=== PATIENT | male | born 1960 | race Caucasian/White ===

== ENCOUNTER 2020-02-24 21:18 | Inpatient (IN) | payer SELFPAY ==
[2020-02-24] MEDS ORDERED: Morphine 4 MG/ML VIAL ONE (21:47)
[2020-02-24 22:02] LABS: #Lymphocytes 0.6 thou/uL (1.20-3.40); #Monocytes 0.8 thou/uL (0.11-0.59); #Neutrophils 12.2 thou/uL (1.40-6.50); %Eosinophils 0.2 % (0.0-10.0); %Lymphocytes 4.1 % (21.0-51.0); %Monocytes 5.6 % (0.0-10.0); %Neutrophils 90.1 % (42.0-75.0); Hemoglobin 12.3 g/dL (14.0-18.0); Mean Corpuscular HGB CONC 34.9 g/dL (32.0-36.0); Mean Corpuscular Hemoglobin 34.3 pg (27.0-31.0); Mean Corpuscular Volume 98.5 fL (78.0-98.0); Mean Platelet Volume 6.2 fL (7.4-10.4); Platelet Count 176 thou/uL (130-400); RBC Distribution Width 12.3 % (11.5-14.5); Red Blood Cell (RBC) Count 3.57 mill/uL (4.70-6.10); White Blood Cell (WBC) Count 13.5 thou/uL (4.8-10.8)
[2020-02-24] MEDS ORDERED: methylPREDNISolone Sod Succ/PF 125 MG/2 ML VIAL ONE (22:10)
[2020-02-24] MEDS ORDERED: Ketorolac Tromethamine 30 MG/ML VIAL ONE (22:12)
[2020-02-24 22:17] LABS: Acetaminophen Less than 6.0 mcg/mL (10.0-30.0); Alcohol Less than 10 mg/dL (Less than 10); Salicylate Less than 8.0 mg/dL (15.0-30.0)
[2020-02-24] MEDS ORDERED: hydrALAZINE 20 MG/ML VIAL SLOW IVP PRN (22:25)
[2020-02-24] MEDS ORDERED: Dextrose 50% Abboject 50 ML SYRINGE SLOW IVP PRN (22:25)
[2020-02-24] MEDS ORDERED: Morphine 4 MG/ML VIAL SLOW IVP PRN ×2 (22:25→22:39)
[2020-02-24] MEDS ORDERED: Ondansetron PF 4 MG/2 ML Vial IVP PRN (22:25)
[2020-02-24] MEDS ORDERED: Dextrose 5% in Water 1,000 ML IV PRN (22:25)
[2020-02-24] MEDS ORDERED: Cyclobenzaprine 10 MG TAB PO PRN (22:37)
[2020-02-24 22:41] LABS: CKMB 29.5 ng/mL (0-6.6)
[2020-02-24] MEDS ORDERED: Sodium Chloride 0.9% 1,000 ML IV SCH (23:00)
--- NOTE | 2020-02-24 23:23 | RAD ---
EXAM: CHEST ONE VIEW HISTORY: Chest tube placement COMPARISON: 02/24/2020 at 2009 hours. FINDINGS: Left-sided thoracostomy tube remains in place with tip again overlying the left lung apex. Subcutaneo us emphysema is again seen at the lateral left chest. Multiple left-sided rib fractures are again seen. No pleural fluid or obvious pneumothorax is appreciated. There is patchy parenchymal density 16 and a left perihilar location which could be related to contusion. Right lung is clear. Cardiac silhouettes within normal limits. No other interval change. IMPRESSION: 1. Left-sided thoracostomy tube remaining in place without obvious pneumothorax, and no pleural effus ion is seen. 2. Multiple left-sided rib fractures some of which are mildly displaced. 3. Mild interstitial and patchy opacities in the left perihilar region which could be related to cont usion or aspiration.
--- NOTE | 2020-02-25 00:47 | HP ---
TRAUMA SURGEON: Dr. Clemente. CONSULTING PHYSICIAN: None. HISTORY OF PRESENT ILLNESS: The patient is a 59-year-old male presented to our Emergency Department as a transfer and a level 2 trauma activation. The patient reported he was up in a tree standing on a ladder about 10 feet up, a branch subsequently hit the ladder and he fell onto his left side. He reports positive loss of consciousness and aspirin use. Denies any other anticoagulation. Afterwards, he reported bystanders carried him to a table. He was eventually able to get up and get a ride to the outside hospital. He was evaluated and found to have left-sided rib fractures, transverse process fractures, left lower lobe pulmonary contusion and a left-sided tension pneumothorax. A chest tube was placed and the patient was transferred to us. Upon my evaluation, the patient complained of left-sided chest wall pain. He denied any shortness of breath. He was saturating 97% on 3 L nasal cannula. He is a smoker. He does not take any medications for COPD. He denies numbness and tingling in his bilateral upper extremities. He denies C, T and L spine tenderness. He is alert and oriented x4. REVIEW OF SYSTEMS: All additional 10-point review of systems negative except as indicated above. PAST MEDICAL HISTORY: Hypertension and rotator cuff issues. PAST SURGICAL HISTORY: None. SOCIAL HISTORY: The patient reports drinking 6-7 beers every day. He smokes 2 packs tobacco cigarettes every day. Denies any drug use. He lives with roommates that are not his family, but he does have family nearby. MEDICATIONS: The patient takes lisinopril and another antihypertensive medication that he could not remember the name. ALLERGIES: NO KNOWN DRUG ALLERGIES. PHYSICAL EXAMINATION: VITAL SIGNS: Temperature 98, pulse 74, respirations 23, oxygen saturation 97% on 3 L nasal cannula, blood pressure 137/83. PRIMARY SURVEY: Airway intact. Positive bilateral breath sounds. 2+ pulses in the bilateral radials, femorals, and DPs. GCS 15. Gross motor and sensation intact. No lacerations, bruising, or external bleeding. SECONDARY SURVEY: HEAD: Normocephalic and atraumatic. No gross palpable skull deformities. EYES: Pupils 3-2, equal, round, reactive to light bilaterally. ENT: No hemotympanum. No epistaxis. No septal hematoma. Midface stable to manipulation. No blood in the oropharynx. Dentition is intact. NECK: No anterior neck injury/tenderness/crepitus. C-SPINE: No step-offs or deformities. Nontender. C-collar in place. CHEST: Left-sided anterior and lateral chest wall tenderness with a chest tube in place that is working appropriately. There is no output in the chamber. He has no abrasions or ecchymosis noted. ABDOMEN: Soft, nontender, nondistended. PELVIS: Stable to palpation. RECTAL: Deferred. GENITOURINARY: Deferred. EXTREMITIES: No gross deformities. No abrasions or ecchymosis. 2+ pulses in bilateral radials, femorals, and DPs. BACK/SPINE: No step-offs or deformities or tenderness to palpation of the thoracic or lumbar spine. No abrasions or ecchymosis noted. NEUROLOGIC: 5/5 strength. LABORATORY FINDINGS: White count 13.5, hemoglobin 12.3, hematocrit 35.2, platelets 176. Troponin 0.045, then 0.104. Sodium 133, potassium 3.8, chloride 98, bicarb 23, BUN 11, creatinine 0.74, glucose 96, lactic acid 2.1. Plasma alcohol is less than 10. DIAGNOSTIC FINDINGS: CT scan of the brain demonstrates no acute intracranial findings. CT scan of the C-spine demonstrates significant cervical degenerative changes, but no acute fracture seen. Left apical pneumothorax with some surrounding soft tissue air, see CT thorax to follow. CT scan of the chest, abdomen, and pelvis demonstrates fractures of ribs 3 through 11 fractures of left transverse process L1 through L4, moderate left pneumothorax with very minor deviation of the trachea to the right, atelectasis, contusion of the left lower lobe. All abdominal organs appear intact including the spleen, pelvis, and hip intact. No evidence of abdominal or pelvic hematoma or free air. Degenerative changes to the lumbar spine with some disk bulges and central canal stenosis particularly L4-L5 and L5-S1. Chest x-ray demonstrates left-sided thoracostomy tube remains in place without obvious pneumothorax and no pleural effusion is seen. Multiple left-sided rib fractures, some of which are mildly displaced, mild interstitial and patchy opacities in the left perihilar region which could be related to contusion or aspiration. ASSESSMENT: 1. Status post fall from 10 feet. 2. Left-sided ribs 3 through 11 fractures. 3. Left transverse process fractures of L1 through L4. 4. Left-sided tension pneumothorax, status post chest tube placement. 5. Left lower lobe pulmonary contusion. 6. Non-ST segment elevation myocardial infarction, concerning for possible cardiac contusion. 7. Hyponatremia, unsure of acuity. 8. Chronic alcohol and tobacco abuse. PLAN: The patient will be admitted to the IMCU. Continue left-sided chest tube to suction. Continue nasal cannula oxygen with goal SpO2 of 88% or better. RT to start doing nebulizer treatments once on the floor per hospital protocol. Repeat chest x-ray in the morning. The patient's troponins have continued to increase. EKG completed in the emergency department this evening demonstrated normal sinus rhythm with T-wave inversion in V1. There are no other ST-segment changes. The patient is describing chest wall tenderness and not so much cardiac related chest pain. We will continue to trend troponins. Continue cardiac monitoring. Echo to be completed in the morning. The patient will also be placed on Serax for alcohol withdrawal prevention. This patient was discussed with Dr. Clemente before this dictation. Job ID: [id number]
[2020-02-25 01:43] LABS: Bacteria/HPF None Seen HPF (None Seen); Bilirubin Negative (Negative); Blood, Urine 2+ (Negative); Clarity Clear (Clear); Cocaine Metabolite Screen Not Detected (NotDetected); Glucose, Urine (Dipstick) Normal (Negative); Ketone, Urine 10 mg/dL (Negative); Leukocyte Negative Leu/uL (Negative); Medtox Reader # READER 1; Methamphetamine Not Detected (NotDetected); Nitrite Negative (Negative); Opiate Screen Detected (NotDetected); Phencyclidine (PCP) Not Detected (NotDetected); Protein, Urine (Dipstick) Negative (Neg-Trace); Specific Gravity, Urine 1.032 (1.002-1.036); Squamous Epithelial 0-3 HPF (0-3); THC/Cannabinoid Screen Not Detected (NotDetected); Urobilinogen Normal mg/dL (Less than 2)
[2020-02-25 01:44] LABS: Amphetamine Not Detected (NotDetected); Barbiturates Screen Not Detected (NotDetected); Benzodiazepine Screen Not Detected (NotDetected); Medtox Control Line Valid? VALID (VALID); Methadone Not Detected (NotDetected); Oxycodone Screen Not Detected (NotDetected); Tricyclic Screen Not Detected (NotDetected)
[2020-02-25] MEDS: Oxazepam 10 MG CAP PO SCH ×3 (02:31→15:47)
[2020-02-25] MEDS: Acetaminophen 500 MG TAB PO SCH ×4 (02:31→17:33)
[2020-02-25] MEDS: traMADol HCl 50 MG TAB PO SCH ×4 (02:32→17:32)
[2020-02-25 02:42] VITALS: BMI 21.3
[2020-02-25] MEDS: Ketorolac Tromethamine 30 MG/ML VIAL IVP SCH ×4 (04:15→20:19)
[2020-02-25 04:25] LABS: #Basophils 0.1 thou/uL (0.0-0.2); #Lymphocytes 0.3 thou/uL (1.20-3.40); #Monocytes 0.2 thou/uL (0.11-0.59); #Neutrophils 10.8 thou/uL (1.40-6.50); %Basophils 0.7 % (0.0-1.0); %Eosinophils 0.1 % (0.0-10.0); %Lymphocytes 2.5 % (21.0-51.0); %Monocytes 1.5 % (0.0-10.0); %Neutrophils 95.2 % (42.0-75.0); Hemoglobin 12.5 g/dL (14.0-18.0); Mean Corpuscular HGB CONC 34.9 g/dL (32.0-36.0); Mean Corpuscular Hemoglobin 34.7 pg (27.0-31.0); Mean Corpuscular Volume 99.2 fL (78.0-98.0); Mean Platelet Volume 6.5 fL (7.4-10.4); Platelet Count 188 thou/uL (130-400); RBC Distribution Width 12.3 % (11.5-14.5); Red Blood Cell (RBC) Count 3.61 mill/uL (4.70-6.10); White Blood Cell (WBC) Count 11.3 thou/uL (4.8-10.8)
[2020-02-25 04:44] LABS: Anion Gap 10 mmol/L (10-20); BUN (Urea Nitrogen) 9 mg/dL (8.4-25.7); Calc. Creatinine Clearance 119 mL/min (70-130); Calcium 8.1 mg/dL (7.8-10.44); Carbon Dioxide 25 mmol/L (22-29); Chloride 101 mmol/L (98-107); Estimated GFR-MDRD Greater than 90; Glucose 146 mg/dL (70-105); Magnesium 1.8 mg/dL (1.6-2.6); Phosphorus 3.6 mg/dL (2.3-4.7); Potassium 4.4 mmol/L (3.5-5.1); Sodium 132 mmol/L (136-145)
--- NOTE | 2020-02-25 07:57 | RAD ---
EXAM: Single view of the chest HISTORY: Left-sided pneumothorax COMPARISON: 02/24/2020 FINDINGS: Single view of the chest shows a normal sized cardiomediastinal silhouette. There is a lef t-sided chest tube without evidence of pneumothorax. There is no evidence of consolidation, mass, or pleural effusion. Multiple left-sided rib fractures are seen. Air is seen in the left chest wall. Degenerative changes are seen in the spine. IMPRESSION: Left chest tube without evidence of pneumothorax.
[2020-02-25] MEDS ORDERED: Magnesium 2 GM/50 ML 2 GM in Premix Bag 1 BAG IVPB SCH (08:30)
[2020-02-25] MEDS: Tamsulosin HCl 0.4 MG CAP PO SCH (08:45)
[2020-02-25] MEDS: Folic Acid 1 MG TAB PO SCH ×2 (08:45→20:18)
[2020-02-25] MEDS: Polyethylene Glycol 3350 17 GM Packet PO SCH (08:45)
[2020-02-25] MEDS: Gabapentin 300 MG CAP PO SCH ×3 (08:45→20:18)
[2020-02-25] MEDS: Ferrous Sulfate 325 MG TAB PO SCH ×2 (08:45→17:33)
[2020-02-25] MEDS: Famotidine 20 MG TAB PO SCH ×2 (08:45→20:19)
[2020-02-25] MEDS: Multivitamin W/ Minerals 1 TAB PO SCH (08:45)
[2020-02-25] MEDS: Senokot S 8.6-50 MG TAB PO SCH ×2 (08:45→20:01)
[2020-02-25] MEDS: Ascorbic Acid 500 mg Chewable Tablet PO SCH ×2 (08:45→20:18)
[2020-02-25] MEDS: Thiamine 100 MG TAB PO SCH (08:45)
--- NOTE | 2020-02-25 14:57 | PRG ---
DATE OF SERVICE: 02/25/2020 SUBJECTIVE: The patient is currently in the [facility]. He was seen this morning during rounds. He was admitted last night after falling from a ladder approximately 10 feet, which he sustained left ribs 3 through 11, left pneumothorax, requiring emergent chest tube placement, left lower lobe pulmonary contusion, transverse process fractures, hyponatremia, and had an elevated troponin that has already downward trended. Overnight, the patient had no issues. This morning, he states that he is tolerating a diet and his pain is controlled. He is able to draw greater than 2000 on his incentive spirometry. It is quite impressive with a 2-pack a day smoking history. PHYSICAL EXAMINATION: VITAL SIGNS: Temperature is 98.0, heart rate 72, blood pressure 142/82, respirations 20, and oxygen saturation is 100% on room air. GENERAL: The patient is resting comfortably in bed. He is awake, alert, conversant, and appropriate. [place] Coma Scale is 15. HEENT: Unremarkable. LUNGS: Clear to auscultation with good inspiratory and expiratory effort. Left chest tube is in place. It does not show air leak. HEART: Regular rate and rhythm. ABDOMEN: Soft, flat, nontender with active bowel sounds. EXTREMITIES: Neurovascularly intact x4. LABORATORY FINDINGS: White blood cell count 11.3, hemoglobin 12.5, hematocrit 35.8, platelets 188. Sodium 132, potassium 4.4, chloride 101, CO2 of 25, BUN 9, creatinine 0.61, glucose 146, magnesium 1.8, phosphorus 3.6. RADIOGRAPHIC REPORTS: AP chest x-ray shows left chest tube without evidence of pneumothorax. Echocardiogram shows ejection fraction of 60% to 65%. There is mild tricuspid regurgitation, otherwise unremarkable. ASSESSMENT: 1. Status post fall from approximately 10 feet. 2. Left-sided ribs 3 through 11 fractures. 3. Left transverse process fractures of L1 through L4. 4. Left-sided pneumothorax requiring chest tube placement, stable, improved. 5. Left lower lobe pulmonary contusion, stable. 6. [id number] elevation myocardial infarction, type 2, demand ischemia. 7. Hyponatremia, stable. PLAN: Plan will be to place the chest tube to water seal. Continue pain control and pulmonary toilet. Encourage out of bed and we will transfer him to the surgical floor this morning. Job ID: [id number]
[2020-02-25] MEDS: Amlodipine 10 MG TAB PO SCH (20:19)
[2020-02-26] MEDS: Acetaminophen 500 MG TAB PO SCH ×5 (00:01→23:48)
[2020-02-26] MEDS: Oxazepam 10 MG CAP PO SCH ×4 (00:01→23:48)
[2020-02-26] MEDS: traMADol HCl 50 MG TAB PO SCH ×5 (00:01→23:48)
--- NOTE | 2020-02-26 02:26 | PRG ---
DATE OF SERVICE: SUBJECTIVE: Mr. Gillespie is a 59-year-old male, status post fall from 10 feet height. He sustained multiple traumatic injuries, including left rib fracture and left transverse L1-L4 fracture, left pneumothorax with chest tube placement on water-seal. Patient remained in medical floor. Patient reports pain is well controlled. He is able to work with physical therapy, occupational therapy. Patient developed no fever or shortness of breath. He is able to tolerate regular diet. He is able to work with spirometry and able to pull out 1500. Vital signs have been stable. OBJECTIVE: GENERAL: Currently, patient is lying in bed comfortable with no acute respiratory distress. VITAL SIGNS: Stable. LUNGS: Clear bilaterally. Chest tube is in place on water-seal. HEART: Regular rate and rhythm. ABDOMEN: Soft and nondistended. EXTREMITIES: Neurovascularly intact x4. NEUROLOGY: No focal neurology deficits. ASSESSMENT: 1. Status post fall from 10 feet. 2. Left multiple rib fractures. 3. Left transverse L1 and to L4 fracture, conservative treatment. 4. Left pneumothorax with chest tube placement. PLAN: Continue supportive care. Continue pain control. Encourage working with Physical Therapy and Occupational Therapy and spirometry. We will repeat chest x-ray tomorrow and anticipate discharge home for the next 24 to 48 hours. Job ID: [id number] MTDD
[2020-02-26] MEDS: Ketorolac Tromethamine 30 MG/ML VIAL IVP SCH ×4 (05:05→20:35)
[2020-02-26] MEDS: Ascorbic Acid 500 mg Chewable Tablet PO SCH ×2 (08:20→20:35)
[2020-02-26] MEDS: Thiamine 100 MG TAB PO SCH (08:20)
[2020-02-26] MEDS: Multivitamin W/ Minerals 1 TAB PO SCH (08:20)
[2020-02-26] MEDS: Folic Acid 1 MG TAB PO SCH ×2 (08:20→20:35)
[2020-02-26] MEDS: Famotidine 20 MG TAB PO SCH ×2 (08:20→20:34)
[2020-02-26] MEDS: Ferrous Sulfate 325 MG TAB PO SCH ×2 (08:20→16:16)
[2020-02-26] MEDS: Gabapentin 300 MG CAP PO SCH ×3 (08:20→20:34)
[2020-02-26] MEDS: Aspirin Chewable 81 MG TAB PO SCH (08:20)
[2020-02-26] MEDS: Senokot S 8.6-50 MG TAB PO SCH ×2 (08:20→20:34)
[2020-02-26] MEDS: Tamsulosin HCl 0.4 MG CAP PO SCH (08:20)
[2020-02-26] MEDS: Enoxaparin Sodium 40 MG/0.4 ML SYRINGE SC SCH (08:20)
[2020-02-26] MEDS: Lisinopril 20 MG TAB PO SCH (08:25)
[2020-02-26] MEDS: Polyethylene Glycol 3350 17 GM Packet PO SCH (08:26)
--- NOTE | 2020-02-26 11:25 | RAD ---
PORTABLE CHEST 1 VIEW: Date: 02/26/2020 Time: 1052 hours HISTORY: Left pneumothorax and chest tube. COMPARISON: Previous day. FINDINGS/IMPRESSION: Left-sided chest tube remains in place. No pneumothorax is seen. Multiple left-sided rib fractures ar e again noted. There is subcutaneous emphysema in the left chest wall. The heart size is normal. The aorta is tortuous. The right lung is clear. POS: OFF
--- NOTE | 2020-02-26 17:24 | PRG ---
DATE OF SERVICE: 02/26/2020 SUBJECTIVE: The patient is currently on the medicine floor, who was overflow from the surgical floor. He had been transferred from the [facility] yesterday. Overnight, he had no issues. He has been admitted status post fall from a ladder approximately 10 feet, in which he sustained left ribs 3 through 11 and left pneumothorax, requiring a chest tube placed. Overnight, the patient had no issues. This morning, he is tolerating a diet. His pain is controlled. He is able to get to about 1500 on his incentive spirometry this morning. We work with him to get him back to his previous accomplishment of 1999. PHYSICAL EXAMINATION: VITAL SIGNS: Temperature 97.9, heart rate 67, blood pressure 121/74, respirations 16, oxygen saturation 92% on room air. GENERAL: The patient is resting comfortably in bed. He is awake, alert, and oriented. [place] Coma Scale is 15. HEENT: Unremarkable. LUNGS: Clear to auscultation with good inspiratory and expiratory effort. Left chest tube is in place. It does this morning show a small air leak. HEART: Regular rate and rhythm. ABDOMEN: Soft, flat, nontender with active bowel sounds. EXTREMITIES: Neurovascularly intact x4. LABORATORY DATA: There are no new labs this morning. RADIOGRAPH: AP chest x-ray shows the left-sided chest tube in place. No pneumothorax is seen. There are multiple left-sided rib fractures again noted. ASSESSMENT AND PLAN: 1. Status post fall from approximately 10 feet. 2. Left-sided rib fractures 3 through 11. 3. Left transverse process fractures of L1 through L4. 4. Left-sided pneumothorax, requiring a chest tube, stable, small air leak noted this morning. 5. Left lower lobe pulmonary contusion, stable. 6. [id number] elevation myocardial infarction, type 2 demand ischemia. 7. Hyponatremia, stable. Plan will be to continue the chest tube for 24 more hours for repeat chest x-ray in the morning. Continue to encourage pulmonary toilet and out of bed. The evaluation was done this morning with Dr. Carroll on rounds. Job ID: [id number]
[2020-02-26] MEDS: Amlodipine 10 MG TAB PO SCH (20:35)
--- NOTE | 2020-02-26 23:58 | PDOC.BPN ---
- Brief Progress Note DATE OF SERVICE: 02/26/2020 SUBJECTIVE: Mr. Gillespie is a 59-year-old male, status post fall from 10 feet height. He sustained multiple traumatic injuries, including left rib fracture and left transverse L1-L4 fracture, left pneumothorax with chest tube placement on water-seal. Patient remained in medical floor. Patient reports pain is well controlled. He is able to work with physical therapy, occupational therapy. Patient developed no fever or shortness of breath. He is able to tolerate regular diet. He is able to work with spirometry and able to pull out 1500- 2000. Vital signs have been stable. Patient CT has air leak , in which his CT remain on water seal today OBJECTIVE: GENERAL: Currently, patient is lying in bed comfortable with no acute respiratory distress. VITAL SIGNS: Stable. LUNGS: Clear bilaterally. Chest tube is in place on water-seal. HEART: Regular rate and rhythm. ABDOMEN: Soft and nondistended. EXTREMITIES: Neurovascularly intact x4. NEUROLOGY: No focal neurology deficits. ASSESSMENT: 1. Status post fall from 10 feet. 2. Left multiple rib fractures. 3. Left transverse L1 and to L4 fracture, conservative treatment. 4. Left pneumothorax with chest tube placement. PLAN: Continue supportive care. Continue pain control. Encourage working with Physical Therapy and Occupational Therapy and spirometry. We will repeat chest x-ray tomorrow and anticipate discharge home for the next 24 to 48 hours.
[2020-02-27] MEDS: traMADol HCl 50 MG TAB PO SCH ×4 (04:42→23:44)
[2020-02-27] MEDS: Acetaminophen 500 MG TAB PO SCH ×4 (04:43→23:44)
[2020-02-27] MEDS: Ketorolac Tromethamine 30 MG/ML VIAL IVP SCH (04:43)
[2020-02-27] MEDS: Gabapentin 300 MG CAP PO SCH ×3 (07:56→20:21)
[2020-02-27] MEDS: Enoxaparin Sodium 40 MG/0.4 ML SYRINGE SC SCH (07:56)
[2020-02-27] MEDS: Famotidine 20 MG TAB PO SCH ×2 (07:56→20:21)
[2020-02-27] MEDS: Ferrous Sulfate 325 MG TAB PO SCH ×2 (07:56→17:10)
[2020-02-27] MEDS: Polyethylene Glycol 3350 17 GM Packet PO SCH (07:56)
[2020-02-27] MEDS: Tamsulosin HCl 0.4 MG CAP PO SCH (07:56)
[2020-02-27] MEDS: Folic Acid 1 MG TAB PO SCH ×2 (07:56→20:21)
[2020-02-27] MEDS: Aspirin Chewable 81 MG TAB PO SCH (07:57)
[2020-02-27] MEDS: Senokot S 8.6-50 MG TAB PO SCH ×2 (07:57→20:22)
[2020-02-27] MEDS: Ascorbic Acid 500 mg Chewable Tablet PO SCH ×2 (07:57→20:21)
[2020-02-27] MEDS: Thiamine 100 MG TAB PO SCH (07:57)
[2020-02-27] MEDS: Multivitamin W/ Minerals 1 TAB PO SCH (07:57)
[2020-02-27] MEDS: Oxazepam 10 MG CAP PO SCH ×3 (09:03→23:44)
[2020-02-27] MEDS: Lisinopril 20 MG TAB PO SCH (09:05)
--- NOTE | 2020-02-27 09:24 | RAD ---
PORTABLE CHEST 1 VIEW: Date: 02/27/2020 Time: 0912 hours HISTORY: Follow-up pneumothorax. FINDINGS/IMPRESSION: Comparison made with exam of previous day. The left-sided chest tube remains in place. The heart size is stable. No pneumothoraces are seen. The re is a new infiltrate in the right lung base. There is consolidation/atelectatic change in the left lung base. Multiple left-sided rib fractures are present. POS: OFF
--- NOTE | 2020-02-27 16:03 | PRG ---
DATE OF SERVICE: 02/27/2020 This is Jordan Duran PA-C dictating a report for Dr. Carroll. SUBJECTIVE: The patient is currently on the medical floor. He is status post a fall, from which he sustained left ribs 3 through 11 fractures and a left-sided pneumothorax requiring a chest tube. He has been on water-seal overnight. He reports no issues overnight. He is tolerating a diet. His pain is controlled on his incentive spirometry. PHYSICAL EXAMINATION: VITAL SIGNS: Temperature is 98.0, heart rate 91, blood pressure 106/71, respirations 18, oxygen saturation 94% on 2 L via nasal cannula. GENERAL: The patient is resting comfortably in bed. He is awake, alert, conversant, oriented, and appropriate. [place] Coma Scale is 15. HEENT: Unremarkable. LUNGS: Clear to auscultation with good inspiratory and expiratory effort. His left chest tube is in place. Does not show an air leak this morning. HEART: Regular rate and rhythm. ABDOMEN: Soft, flat, nontender with active bowel sounds. EXTREMITIES: Neurovascularly intact x4. LABORATORY DATA: There are no labs to review this morning. RADIOGRAPHS: AP chest x-ray shows a left chest tube in place. No pneumothoraces are seen. ASSESSMENT AND PLAN: 1. Status post fall from approximately 10 feet. 2. Left-sided rib fractures 3 through 11. 3. Left transverse process fractures of L1 through L4. 4. Left-sided pneumothorax requiring chest tube, improved. 5. Left lower lobe pulmonary contusion, stable. 6. Non ST-segment elevation myocardial infarction, type 2 demand ischemia. 7. Hyponatremia, stable. PLAN: Plan will be to discontinue his chest tube this morning. We will repeat his chest x-ray in the morning sooner as needed. The evaluation and examination were done with Dr. Carroll this morning during rounds. The patient's left chest tube was discontinued without difficulty. Job ID: [id number]
[2020-02-27] MEDS: Amlodipine 10 MG TAB PO SCH (20:21)
--- NOTE | 2020-02-28 00:59 | PDOC.BPN ---
- Brief Progress Note DATE OF SERVICE: 02/27/2020 SUBJECTIVE: Mr. Gillespie is a 59-year-old male, status post fall from 10 feet height. He sustained multiple traumatic injuries, including left rib fracture and left transverse L1-L4 fracture, left pneumothorax with chest tube placement on water-seal. Patient remained in medical floor. Patient reports pain is well controlled. He is able to work with physical therapy, occupational therapy. Patient developed no fever or shortness of breath. He is able to tolerate regular diet. He is able to work with spirometry and able to pull out 1500- 2000. Vital signs have been stable. Patient CT has been removed today OBJECTIVE: GENERAL: Currently, patient is lying in bed comfortable with no acute respiratory distress. VITAL SIGNS: Stable. LUNGS: Clear bilaterally. Chest tube is in place on water-seal. HEART: Regular rate and rhythm. ABDOMEN: Soft and nondistended. EXTREMITIES: Neurovascularly intact x4. NEUROLOGY: No focal neurology deficits. ASSESSMENT: 1. Status post fall from 10 feet. 2. Left multiple rib fractures. 3. Left transverse L1 and to L4 fracture, conservative treatment. 4. Left pneumothorax with chest tube placement. PLAN: Continue supportive care. Continue pain control. Encourage working with Physical Therapy and Occupational Therapy and spirometry. We will repeat chest x-ray tomorrow and anticipate discharge home for the next 24 to 48 hours.
[2020-02-28] MEDS: Acetaminophen 500 MG TAB PO SCH ×3 (04:29→17:24)
[2020-02-28] MEDS: traMADol HCl 50 MG TAB PO SCH ×3 (04:29→17:23)
--- NOTE | 2020-02-28 07:43 | RAD ---
EXAM: Single view of the chest HISTORY: Shortness of breath COMPARISON: 02/27/2020 FINDINGS: Single view of the chest shows a normal sized cardiomediastinal silhouette. Opacity is aga in seen in the right lung base. The left chest tube has been removed without evidence of pneumothorax. There are multiple left rib fractures. IMPRESSION: Status post chest tube removal without evidence of pneumothorax.
--- NOTE | 2020-02-28 07:44 | RAD ---
Chest one view history: Chest tube removal. COMPARISON: Earlier exam on the same date. Findings cardiac silhouette is magnified by projection. Shallow inspiration accentuates pulmonary mar kings. Mediastinum is midline. Patchy infiltrate at the right base is unchanged in appearance. Lung markings on the left extend beyond the skinfold that mimics a pneumothorax. Chest tube no longer evident. Left chest wall gas has decreased. Left rib fractures are again demonstrated. IMPRESSION : No evidence of recurrent pneumothorax. Right basilar infiltrate and other findings are otherwise stable.
[2020-02-28] MEDS: Senokot S 8.6-50 MG TAB PO SCH (08:12)
[2020-02-28] MEDS: Ferrous Sulfate 325 MG TAB PO SCH ×2 (08:12→17:24)
[2020-02-28] MEDS: Famotidine 20 MG TAB PO SCH (08:13)
[2020-02-28] MEDS: Gabapentin 300 MG CAP PO SCH ×2 (08:13→15:06)
[2020-02-28] MEDS: Lisinopril 20 MG TAB PO SCH (08:13)
[2020-02-28] MEDS: Ascorbic Acid 500 mg Chewable Tablet PO SCH (08:13)
[2020-02-28] MEDS: Thiamine 100 MG TAB PO SCH (08:13)
[2020-02-28] MEDS: Multivitamin W/ Minerals 1 TAB PO SCH (08:13)
[2020-02-28] MEDS: Enoxaparin Sodium 40 MG/0.4 ML SYRINGE SC SCH (08:14)
[2020-02-28] MEDS: Polyethylene Glycol 3350 17 GM Packet PO SCH (08:14)
[2020-02-28] MEDS: Folic Acid 1 MG TAB PO SCH (08:14)
[2020-02-28] MEDS: Aspirin Chewable 81 MG TAB PO SCH (08:14)
[2020-02-28 08:45] VITALS: BP 135/80; TEMP 98.1
[2020-02-28] MEDS: Tamsulosin HCl 0.4 MG CAP PO SCH (10:17)
[2020-02-28] MEDS: Oxazepam 10 MG CAP PO SCH ×2 (10:19→17:35)
[2020-02-28] MEDS ORDERED: Acetaminophen/Codeine 30-300mg Tablet PO PRN (14:10)
[2020-02-28] MEDS ORDERED: Ascorbic Acid 500 mg Chewable Tablet PO SCH (17:00)
== END 2020-02-28 17:41 | disposition home or self-care (01) | DRG 199 ==
LOC: ERS 21:18 → ERHOLD 22:33 → IMCU/EMU 02-25 02:19 → T4-B 02-25 16:41
PROVIDERS: ADMIT Specialist; ATTEND Specialist
DX: S27.0XXA Traumatic pneumothorax, initial encounter (principal); I21.A1 Myocardial infarction type 2; S22.42XA Multiple fractures of ribs, left side, initial encounter for closed fracture; S32.019A Unspecified fracture of first lumbar vertebra, initial encounter for closed fracture; S32.029A Unspecified fracture of second lumbar vertebra, initial encounter for closed fracture; S32.039A Unspecified fracture of third lumbar vertebra, initial encounter for closed fracture; S32.049A Unspecified fracture of fourth lumbar vertebra, initial encounter for closed fracture; S27.321A Contusion of lung, unilateral, initial encounter; E87.1 Hypo-osmolality and hyponatremia; J44.9 Chronic obstructive pulmonary disease, unspecified; I10 Essential (primary) hypertension; F10.10 Alcohol abuse, uncomplicated; F17.210 Nicotine dependence, cigarettes, uncomplicated; W11.XXXA Fall on and from ladder, initial encounter
CPT/HCPCS: 36415; 71045; 80048; 80306; 80307; 81003; 81015; 82553; 83735; 84100; 84484; 85025; 93005; 93306; 94640; 96374; 96375; G0390; J1650; J1885; J2270; J2930; J3475; J7620